=== PATIENT | male | born 1945 | race Caucasian/White ===

== ENCOUNTER 2016-11-20 08:17 | Inpatient (IN) | payer OTHER ==
[~2016-11-20] VITALS: Ht 188 cm; Wt 133.2 kg
[2016-11-20 09:31] LABS: EOSINOPHIL (%) 0 % (0-5); HEMATOCRIT 35.4 % (38.0-50.0); IMMATURE GRANULOCYTE (%) 0.3 % (0.0-0.7); IMMATURE GRANULOCYTE COUNT 0.5 K/uL; LYMPHOCYTE COUNT 0.5 K/uL (1.0-2.8); MCH 31.3 PG (29.0-34.0); MCHC 33.6 G/DL (30.0-36.0); MCV 93.2 FL (86-99); MONOCYTE (%) 5.3 % (3-12); NEUTROPHIL (%) 91.9 % (45-76); NEUTROPHIL COUNT 17.4 K/uL (1.8-6.4); PLATELET COUNT 268 K/uL (156-360); RBC DIS.WIDTH-CV 12.6 % (11.8-14.6); RBC DIS.WIDTH-SD 40.9 % (39-53); WHITE BLOOD COUNT 18.9 K/uL (4.1-10.2)
[2016-11-20 09:39] LABS: CHLORIDE 105 mEq/L (99-109); POTASSIUM 3.9 mEq/L (3.7-5.4); SODIUM 139 mEq/L (136-147)
[2016-11-20 09:41] LABS: GLUCOSE 204 mg/dL (70-99)
[2016-11-20 09:42] LABS: ANION GAP 12 MEQ/L (2-14)
[2016-11-20 09:43] LABS: TOTAL BILIRUBIN 0.7 mg/dL (0.0-1.0)
[2016-11-20 09:44] LABS: ALKALINE PHOSPHATASE 53 IU/L (3-129)
[2016-11-20 09:45] LABS: GFR ESTIMATE (CALCULATED) > 59 mL/min/
[2016-11-20 09:46] LABS: UREA NITROGEN (BUN) 19 mg/dL (9-23)
[2016-11-20 09:48] LABS: LIPASE > 1055 U/L (1.0-51.0)
[2016-11-20] MEDS ORDERED: DOXAZOSIN MESYLA8 MG PO (13:42)
[2016-11-20] MEDS ORDERED: REGLAN10 MG PO (13:42)
[2016-11-20] MEDS ORDERED: GLIPIZIDE5 MG PO (13:42)
[2016-11-20] MEDS ORDERED: ATENOLOL25 MG PO (13:43)
[2016-11-20] MEDS ORDERED: CITALOPRAM HBR40 MG PO (13:43)
[2016-11-20] MEDS ORDERED: OMEPRAZOLE20 MG PO (13:43)
[2016-11-20] MEDS ORDERED: NAPROXEN500 MG PO (13:45)
[2016-11-20] MEDS ORDERED: MIRALAX17 GM PO (13:46)
[2016-11-20] MEDS ORDERED: PERCOCET 10/1 TABLET PO (13:46)
[2016-11-20] MEDS ORDERED: TRAMADOL HCL50 MG PO (13:46)
[2016-11-20] MEDS ORDERED: ASPIR-LOW81 MG PO (13:47)
[2016-11-20] MEDS ORDERED: VITAMIN D31000 UNI2 PO (13:47)
[2016-11-20] MEDS ORDERED: COMPLEX B-1001 EACH PO (13:47)
[2016-11-20] MEDS ORDERED: FISH OIL 1,2001 EAC4 PO (13:48)
[2016-11-20] MEDS ORDERED: CALCIUM PLUS M1 EAC1 PO (13:48)
[2016-11-20 15:34] LABS: Estimated Average Glucose 123 mg/dL (70-123); HEMOGLOBIN A1c (GLYCOHEMOGLOB) 5.9 % HGB (Below 5.7)
[2016-11-20 17:03] LABS: TRIGLYCERIDES 113 MG/DL (Normal: <150)
[2016-11-20 17:34] VITALS: BP 136/62
[2016-11-20 19:40] VITALS: BP 156/72
[2016-11-20 23:59] VITALS: BP 122/64
[2016-11-21 04:16] VITALS: BP 137/66
[2016-11-21 07:01] LABS: MCH 31.3 PG (29.0-34.0); MCHC 32.8 G/DL (30.0-36.0); MCV 95.2 FL (86-99); MEAN PLAT.VOLUME 10.5 uM^3 (9.0-12.4); PLATELET COUNT 232 K/uL (156-360); RBC DIS.WIDTH-CV 13.5 % (11.8-14.6); RBC DIS.WIDTH-SD 46.9 % (39-53); RED BLOOD COUNT 3.36 M/uL (4.00-5.50)
[2016-11-21 07:02] LABS: ALKALINE PHOSPHATASE 48 IU/L (3-129); ANION GAP 9 MEQ/L (2-14); CHLORIDE 108 MEQ/L (99-109); GFR ESTIMATE (CALCULATED) > 59 mL/min/; POTASSIUM 4.1 MEQ/L (3.7-5.4); SAMPLE HEMOLYSIS CHECK 0; SAMPLE ICTERIC CHECK 0; SAMPLE LIPEMIA CHECK 0; SODIUM 143 MEQ/L (136-147); TOTAL BILIRUBIN 0.5 MG/DL (0.0-1.0); UREA NITROGEN (BUN) 20 mg/dL (9-23)
[2016-11-21 07:03] LABS: GLUCOSE 110 mg/dL (70-99); WHITE BLOOD COUNT 12.9 K/uL (4.1-10.2)
[2016-11-21 07:56] VITALS: BP 132/63
[2016-11-21 11:31] VITALS: BP 142/67
[2016-11-21 14:11] LABS: LIPASE 789 U/L (1.0-51.0)
[2016-11-21 16:00] VITALS: BP 182/79
[2016-11-21 19:25] VITALS: BP 140/75
[2016-11-21 23:35] VITALS: BP 170/74
[2016-11-22 04:34] VITALS: BP 151/67
[2016-11-22 05:53] LABS: HEMATOCRIT 31.4 % (38.0-50.0); MCH 31.6 PG (29.0-34.0); MCHC 33.8 G/DL (30.0-36.0); MCV 93.7 FL (86-99); MEAN PLAT.VOLUME 10.3 uM^3 (9.0-12.4); PLATELET COUNT 226 K/uL (156-360); RBC DIS.WIDTH-CV 12.8 % (11.8-14.6); RED BLOOD COUNT 3.35 M/uL (4.00-5.50); WHITE BLOOD COUNT 13.5 K/uL (4.1-10.2)
[2016-11-22 06:44] LABS: ANION GAP 12 MEQ/L (2-14); CHLORIDE 104 MEQ/L (99-109); GFR ESTIMATE (CALCULATED) > 59 mL/min/; GLUCOSE 153 mg/dL (70-99); LIPASE 155 U/L (1.0-51.0); POTASSIUM 3.6 MEQ/L (3.7-5.4); SAMPLE HEMOLYSIS CHECK 0; SAMPLE ICTERIC CHECK 0; SAMPLE LIPEMIA CHECK 0; SODIUM 137 MEQ/L (136-147); UREA NITROGEN (BUN) 11 mg/dL (9-23)
[2016-11-22 08:02] VITALS: BP 149/78
[2016-11-22 12:18] VITALS: BP 156/82
[2016-11-22 15:42] VITALS: BP 157/71
[2016-11-22 20:00] VITALS: BP 190/85
[2016-11-23] VITALS: BP 184/87
[2016-11-23 04:25] VITALS: BP 184/87
[2016-11-23 07:44] VITALS: BP 184/83
[2016-11-23 08:41] LABS: HEMATOCRIT 32.5 % (38.0-50.0); MCH 30.5 PG (29.0-34.0); MCHC 33.2 G/DL (30.0-36.0); MCV 91.8 FL (86-99); MEAN PLAT.VOLUME 10.2 uM^3 (9.0-12.4); PLATELET COUNT 231 K/uL (156-360); RBC DIS.WIDTH-CV 12.7 % (11.8-14.6); RED BLOOD COUNT 3.54 M/uL (4.00-5.50); WHITE BLOOD COUNT 12.6 K/uL (4.1-10.2)
[2016-11-23 09:04] LABS: INTER. NORMALIZED RATIO 1.1; PROTHROMBIN TIME 10.8 (9.2-11.2)
[2016-11-23 09:39] LABS: ALKALINE PHOSPHATASE 50 IU/L (3-129); ANION GAP 12 MEQ/L (2-14); CHLORIDE 100 MEQ/L (99-109); GFR ESTIMATE (CALCULATED) > 59 mL/min/; GLUCOSE 164 mg/dL (70-99); LIPASE 49 U/L (1.0-51.0); POTASSIUM 3.6 MEQ/L (3.7-5.4); SAMPLE HEMOLYSIS CHECK 0; SAMPLE ICTERIC CHECK 0; SAMPLE LIPEMIA CHECK 0; SODIUM 133 MEQ/L (136-147); UREA NITROGEN (BUN) 9 mg/dL (9-23)
[2016-11-23 09:51] LABS: TOTAL BILIRUBIN 0.7 MG/DL (0.0-1.0)
[2016-11-23 12:10] LABS: POINT-OF-CARE METER ID UU13113694
[2016-11-23 12:12] VITALS: BP 134/67
[2016-11-23 20:21] VITALS: BP 150/78
[2016-11-24] VITALS (7 sets, daily range): BP systolic 143–180; BP diastolic 68–102
[2016-11-24] MEDS ORDERED: DILAUDID2 MG PO (10:17)
[2016-11-24] MEDS ORDERED: COLACE100 MG PO ×2 (10:17→10:27)
[2016-11-24] MEDS ORDERED: HYDROMORPHONE HC2 MG PO (10:27)
[2016-11-24 21:58] LABS: POINT-OF-CARE METER ID UU14174225
[2016-11-25] VITALS (7 sets, daily range): BP systolic 166–200; BP diastolic 76–100
[2016-11-25 06:41] LABS: MCH 31.7 PG (29.0-34.0); MCHC 35.2 G/DL (30.0-36.0); MCV 90.2 FL (86-99); MEAN PLAT.VOLUME 10.2 uM^3 (9.0-12.4); PLATELET COUNT 277 K/uL (156-360); RBC DIS.WIDTH-CV 12.5 % (11.8-14.6); RBC DIS.WIDTH-SD 40.7 % (39-53); RED BLOOD COUNT 3.66 M/uL (4.00-5.50); WHITE BLOOD COUNT 12.4 K/uL (4.1-10.2)
[2016-11-25 07:03] LABS: ANION GAP 11 MEQ/L (2-14); CHLORIDE 95 MEQ/L (99-109); GFR ESTIMATE (CALCULATED) > 59 mL/min/; GLUCOSE 167 mg/dL (70-99); SAMPLE HEMOLYSIS CHECK 0; SAMPLE ICTERIC CHECK 0; SAMPLE LIPEMIA CHECK 0; SODIUM 131 MEQ/L (136-147); UREA NITROGEN (BUN) 7 mg/dL (9-23)
[2016-11-25 09:13] LABS: ALKALINE PHOSPHATASE 71 IU/L (3-129); DIRECT BILIRUBIN 0.3 mg/dL (0.0-0.3); TOTAL BILIRUBIN 0.8 MG/DL (0.0-1.0)
[2016-11-26 01:39] VITALS: BP 91/50
[2016-11-26 01:40] VITALS: BP 103/58
[2016-11-26 07:57] VITALS: BP 130/69
[2016-11-26 13:30] VITALS: BP 87/58
[2016-11-26 15:08] LABS: EOSINOPHIL (%) 0.4 % (0-5); EOSINOPHIL COUNT 0.1 K/uL (0-0.3); HEMATOCRIT 33.2 % (38.0-50.0); IMMATURE GRANULOCYTE (%) 1.7 % (0.0-0.7); IMMATURE GRANULOCYTE COUNT 0.2 K/uL; LYMPHOCYTE COUNT 1.1 K/uL (1.0-2.8); MCHC 33.7 G/DL (30.0-36.0); MEAN PLAT.VOLUME 10.2 uM^3 (9.0-12.4); MONOCYTE (%) 10.8 % (3-12); MONOCYTE COUNT 1.5 K/uL (0-0.8); NEUTROPHIL (%) 79.1 % (45-76); NEUTROPHIL COUNT 10.9 K/uL (1.8-6.4); PLATELET COUNT 306 K/uL (156-360); RBC DIS.WIDTH-CV 12.8 % (11.8-14.6); RBC DIS.WIDTH-SD 41.3 % (39-53); RED BLOOD COUNT 3.73 M/uL (4.00-5.50); WHITE BLOOD COUNT 13.8 K/uL (4.1-10.2)
[2016-11-26 17:00] VITALS: BP 116/67
[2016-11-27 00:10] VITALS: BP 133/64
[2016-11-27 06:39] LABS: HEMATOCRIT 32.7 % (38.0-50.0); MCH 31.2 PG (29.0-34.0); MCHC 34.6 G/DL (30.0-36.0); MCV 90.3 FL (86-99); MEAN PLAT.VOLUME 10.2 uM^3 (9.0-12.4); PLATELET COUNT 297 K/uL (156-360); RBC DIS.WIDTH-CV 12.9 % (11.8-14.6); RBC DIS.WIDTH-SD 42.3 % (39-53); RED BLOOD COUNT 3.62 M/uL (4.00-5.50); WHITE BLOOD COUNT 12.2 K/uL (4.1-10.2)
[2016-11-27 07:05] LABS: ANION GAP 12 MEQ/L (2-14); CHLORIDE 97 MEQ/L (99-109); GLUCOSE 159 mg/dL (70-99); POTASSIUM 3.1 MEQ/L (3.7-5.4); SAMPLE HEMOLYSIS CHECK 0; SAMPLE ICTERIC CHECK 0; SAMPLE LIPEMIA CHECK 0; SODIUM 132 MEQ/L (136-147)
[2016-11-27 07:06] LABS: ALKALINE PHOSPHATASE 194 IU/L (3-129); GFR ESTIMATE (CALCULATED) > 59 mL/min/; TOTAL BILIRUBIN 2.1 MG/DL (0.0-1.0); UREA NITROGEN (BUN) 27 mg/dL (9-23)
[2016-11-27 07:41] VITALS: BP 167/78
[2016-11-27 13:09] LABS: DIRECT BILIRUBIN 0.9 mg/dL (0.0-0.3)
[2016-11-27 15:09] VITALS: BP 184/83
[2016-11-27 19:14] VITALS: BP 132/63
[2016-11-28] VITALS: BP 141/69
[2016-11-28 07:19] LABS: ALKALINE PHOSPHATASE 175 IU/L (3-129); ANION GAP 11 MEQ/L (2-14); CHLORIDE 100 MEQ/L (99-109); GFR ESTIMATE (CALCULATED) > 59 mL/min/; GLUCOSE 126 mg/dL (70-99); LIPASE 190 U/L (1.0-51.0); SAMPLE HEMOLYSIS CHECK 0; SAMPLE ICTERIC CHECK 0; SAMPLE LIPEMIA CHECK 0; SODIUM 137 MEQ/L (136-147); UREA NITROGEN (BUN) 21 mg/dL (9-23)
[2016-11-28 07:21] LABS: AMYLASE 88 IU/L (1-118); POTASSIUM 3.9 MEQ/L (3.7-5.4); TOTAL BILIRUBIN 0.8 MG/DL (0.0-1.0)
[2016-11-28 07:30] VITALS: BP 148/80
== END 2016-11-28 14:06 | disposition home or self-care (01) | DRG 419 ==
LOC: EME 08:17 → 5SOUTH 12:43 → EDOF 12:43 → 5SOUTH 17:23
PROVIDERS: Emergency Medicine; Internal Medicine; Internal Medicine Gastroenterology; Physician Assistant; Student in an Organized Health Care Education/Training Program; Surgery
PROC: 0FT44ZZ Resection of Gallbladder, Percutaneous Endoscopic Approach (ICD-10-PCS; principal; 2016-11-23)
PROC: 0DJ08ZZ Inspection of Upper Intestinal Tract, Via Natural or Artificial Opening Endoscopic (ICD-10-PCS; principal; 2016-11-23)
DX: K85.10 Biliary acute pancreatitis without necrosis or infection (principal); K29.80 Duodenitis without bleeding; K80.20 Calculus of gallbladder without cholecystitis without obstruction; G89.18 Other acute postprocedural pain; E88.89 Other specified metabolic disorders; I10 Essential (primary) hypertension; E11.9 Type 2 diabetes mellitus without complications; Q63.1 Lobulated, fused and horseshoe kidney; K57.90 Diverticulosis of intestine, part unspecified, without perforation or abscess without bleeding; J45.909 Unspecified asthma, uncomplicated; G47.33 Obstructive sleep apnea (adult) (pediatric); Z68.37 Body mass index [BMI] 37.0-37.9, adult; E66.9 Obesity, unspecified
CPT/HCPCS: 74177; 74181; 76705; 80048; 80053; 80076; 82150; 82248; 82948; 83036; 83690; 84478; 85025; 85027; 85610; 85730; 87040; 87493; 87506; 88304; 93005; 93306; 94660; 94799; 99281; 99285; C9113; J0330; J0360; J0744; J1170; J1650; J1940; J2250; J2405; J2550; J2765; J3010; J7030; J7040; J7120; S0028

== ENCOUNTER 2016-12-05 06:26 | Inpatient (IN) | payer OTHER ==
[~2016-12-05] VITALS: Ht 190.5 cm; Wt 123.5 kg
[~2016-12-05 06:26] MED LIST: ASPIR-LOW81 MG PO; ATENOLOL25 MG PO; CALCIUM PLUS M1 EAC1 PO; CITALOPRAM HBR40 MG PO; COLACE100 MG PO; COMPLEX B-1001 EACH PO; DILAUDID2 MG PO; DOXAZOSIN MESYLA8 MG PO; FISH OIL 1,2001 EAC4 PO; GLIPIZIDE5 MG PO; HYDROMORPHONE HC2 MG PO; MIRALAX17 GM PO; NAPROXEN500 MG PO; OMEPRAZOLE20 MG PO; PERCOCET 10/1 TABLET PO; REGLAN10 MG PO; TRAMADOL HCL50 MG PO; VITAMIN D31000 UNI2 PO
[2016-12-05 07:09] LABS: EOSINOPHIL (%) 0 % (0-5); HEMATOCRIT 29.7 % (38.0-50.0); IMMATURE GRANULOCYTE (%) 0.4 % (0.0-0.7); IMMATURE GRANULOCYTE COUNT 0.8 K/uL; LYMPHOCYTE COUNT 0.2 K/uL (1.0-2.8); MCH 30.5 PG (29.0-34.0); MCHC 33.7 G/DL (30.0-36.0); MCV 90.5 FL (86-99); MEAN PLAT.VOLUME 10.1 uM^3 (9.0-12.4); MONOCYTE (%) 2.4 % (3-12); MONOCYTE COUNT 0.4 K/uL (0-0.8); NEUTROPHIL (%) 96.1 % (45-76); NEUTROPHIL COUNT 17.6 K/uL (1.8-6.4); PLATELET COUNT 312 K/uL (156-360); RBC DIS.WIDTH-CV 12.7 % (11.8-14.6); RBC DIS.WIDTH-SD 40.7 % (39-53); RED BLOOD COUNT 3.28 M/uL (4.00-5.50); WHITE BLOOD COUNT 18.3 K/uL (4.1-10.2)
[2016-12-05 07:15] LABS: CHLORIDE 107 mEq/L (99-109); SODIUM 140 mEq/L (136-147)
[2016-12-05 07:17] LABS: GLUCOSE 143 mg/dL (70-99)
[2016-12-05 07:19] LABS: ANION GAP 14 MEQ/L (2-14); TOTAL BILIRUBIN 3.8 mg/dL (0.0-1.0)
[2016-12-05 07:21] LABS: ALKALINE PHOSPHATASE 334 IU/L (3-129); GFR ESTIMATE (CALCULATED) > 59 mL/min/
[2016-12-05 07:22] LABS: UREA NITROGEN (BUN) 14 mg/dL (9-23)
[2016-12-05 07:24] LABS: TROP-I INTERPRETATION NEGATIVE
[2016-12-05 07:30] LABS: INFLUENZA A VIRAL ANTIGEN NEGATIVE; INFLUENZA B VIRAL ANTIGEN NEGATIVE
[2016-12-05 07:36] LABS: LIPASE > 4220 U/L (1.0-51.0)
[2016-12-05 08:57] LABS: BILIRUBIN MODERATE; BLOOD NEGATIVE; COLOR DK YELLOW ((YELLOW)); GLUCOSE (STRIP) NEGATIVE; KETONES NEGATIVE; LEUKOCYTES NEGATIVE; NITRITE NEGATIVE; PROTEIN (STRIP) 30; SPECIFIC GRAVITY 1.029 (1.000-1.030)
[2016-12-05 09:01] LABS: ADD MIUA? NO; UCUL ADDED? NO
[2016-12-05 09:17] LABS: ICTOTEST POSITIVE
[2016-12-05 10:28] LABS: TOTAL BILIRUBIN 4.3 mg/dL (0.0-1.0)
[2016-12-05 10:29] LABS: ALKALINE PHOSPHATASE 318 IU/L (3-129)
[2016-12-05 10:32] LABS: DIRECT BILIRUBIN 3.4 mg/dL (0.0-0.3)
[2016-12-05 11:03] LABS: HBSG INDEX 0.14
[2016-12-05 11:04] LABS: HPCA INDEX 0.14
[2016-12-05 11:05] LABS: ANTI-HEPATITIS A VIRUS (IGM) Nonreactive; HAV INDEX 0.22
[2016-12-05 11:06] LABS: ANTI-HEPATITIS B CORE (IGM) Nonreactive; HBC IgM INDEX 0.05
[2016-12-05 11:13] LABS: HDL CHOLESTEROL 29 MG/DL (Desirable>=40); LDL CHOLESTEROL 64 mg/dL (Desirable<100); NON-HDL CHOLESTEROL 81 mg/dL (Desirable<160); TOTAL CHOLESTEROL 110 mg/dL (Desirable<200); TRIGLYCERIDES 86 MG/DL (Normal: <150)
[2016-12-05 11:52] LABS: POINT-OF-CARE METER ID UU14100415
[2016-12-05 16:33] LABS: POINT-OF-CARE METER ID UU13113675
[2016-12-05 18:09] VITALS: BP 180/84
[2016-12-05 18:20] VITALS: BP 180/84
[2016-12-05 19:37] VITALS: BP 163/82
[2016-12-05 23:46] VITALS: BP 178/91
[2016-12-06 03:10] VITALS: BP 150/72
[2016-12-06 06:53] LABS: EOSINOPHIL (%) 0.2 % (0-5); HEMATOCRIT 26.8 % (38.0-50.0); IMMATURE GRANULOCYTE (%) 0.4 % (0.0-0.7); IMMATURE GRANULOCYTE COUNT 0.1 K/uL; LYMPHOCYTE COUNT 0.8 K/uL (1.0-2.8); MCH 30.8 PG (29.0-34.0); MCHC 33.2 G/DL (30.0-36.0); MCV 92.7 FL (86-99); MEAN PLAT.VOLUME 10.5 uM^3 (9.0-12.4); MONOCYTE (%) 4.5 % (3-12); MONOCYTE COUNT 0.6 K/uL (0-0.8); NEUTROPHIL (%) 89.5 % (45-76); NEUTROPHIL COUNT 12.6 K/uL (1.8-6.4); PLATELET COUNT 235 K/uL (156-360); RBC DIS.WIDTH-CV 13.6 % (11.8-14.6); RBC DIS.WIDTH-SD 46.3 % (39-53); RED BLOOD COUNT 2.89 M/uL (4.00-5.50); WHITE BLOOD COUNT 14.1 K/uL (4.1-10.2)
[2016-12-06 07:24] LABS: ALKALINE PHOSPHATASE 233 IU/L (3-129); ANION GAP 10 MEQ/L (2-14); CHLORIDE 108 MEQ/L (99-109); DIRECT BILIRUBIN 2.1 mg/dL (0.0-0.3); GFR ESTIMATE (CALCULATED) > 59 mL/min/; GLUCOSE 149 mg/dL (70-99); LIPASE 180 U/L (1.0-51.0); POTASSIUM 3.5 MEQ/L (3.7-5.4); SAMPLE HEMOLYSIS CHECK 0; SAMPLE ICTERIC CHECK 0; SAMPLE LIPEMIA CHECK 0; SODIUM 140 MEQ/L (136-147); UREA NITROGEN (BUN) 15 mg/dL (9-23)
[2016-12-06 07:29] VITALS: BP 130/75
[2016-12-06 07:49] LABS: POINT-OF-CARE METER ID UU13113781
[2016-12-06 11:37] LABS: POINT-OF-CARE METER ID UU14174216
[2016-12-06 12:30] VITALS: BP 160/78
[2016-12-06 16:17] LABS: POINT-OF-CARE METER ID UU14174216
[2016-12-06 16:31] VITALS: BP 180/81
[2016-12-06 20:00] VITALS: BP 155/87; BP 55/87
[2016-12-06 21:39] LABS: POINT-OF-CARE METER ID UU13113781
[2016-12-06 23:33] VITALS: BP 159/87; BP 59/87
[2016-12-07 04:34] LABS: POINT-OF-CARE METER ID UU14174216
[2016-12-07 06:35] LABS: HEMATOCRIT 26.5 % (38.0-50.0); MCH 30.7 PG (29.0-34.0); MCHC 33.2 G/DL (30.0-36.0); MCV 92.3 FL (86-99); PLATELET COUNT 251 K/uL (156-360); RBC DIS.WIDTH-CV 13.6 % (11.8-14.6); RED BLOOD COUNT 2.87 M/uL (4.00-5.50); WHITE BLOOD COUNT 12.5 K/uL (4.1-10.2)
[2016-12-07 07:01] LABS: ALKALINE PHOSPHATASE 194 IU/L (3-129); ANION GAP 11 MEQ/L (2-14); CHLORIDE 106 MEQ/L (99-109); GFR ESTIMATE (CALCULATED) > 59 mL/min/; GLUCOSE 137 mg/dL (70-99); MAGNESIUM 1.3 mg/dl (1.3-2.7); POTASSIUM 3.5 MEQ/L (3.7-5.4); SAMPLE HEMOLYSIS CHECK 0; SAMPLE ICTERIC CHECK 0; SAMPLE LIPEMIA CHECK 0; SODIUM 139 MEQ/L (136-147); UREA NITROGEN (BUN) 11 mg/dL (9-23)
[2016-12-07 07:02] VITALS: BP 142/88
[2016-12-07 07:22] LABS: TOTAL BILIRUBIN 1.8 MG/DL (0.0-1.0)
[2016-12-07 07:50] LABS: POINT-OF-CARE METER ID UU14174216
[2016-12-07 11:33] LABS: POINT-OF-CARE METER ID UU14174216
[2016-12-07 11:44] VITALS: BP 162/100
[2016-12-07 15:50] VITALS: BP 140/91
[2016-12-07 16:12] LABS: POINT-OF-CARE METER ID UU14174216
[2016-12-07 20:17] VITALS: BP 160/78
[2016-12-08] VITALS (7 sets, daily range): BP systolic 145–188; BP diastolic 68–92
[2016-12-08 06:00] LABS: EOSINOPHIL (%) 0.8 % (0-5); EOSINOPHIL COUNT 0.1 K/uL (0-0.3); HEMATOCRIT 25.7 % (38.0-50.0); IMMATURE GRANULOCYTE (%) 0.3 % (0.0-0.7); LYMPHOCYTE COUNT 0.8 K/uL (1.0-2.8); MCH 30.6 PG (29.0-34.0); MCHC 33.1 G/DL (30.0-36.0); MCV 92.4 FL (86-99); MEAN PLAT.VOLUME 10.8 uM^3 (9.0-12.4); MONOCYTE (%) 6.5 % (3-12); MONOCYTE COUNT 0.7 K/uL (0-0.8); NEUTROPHIL (%) 84.2 % (45-76); NEUTROPHIL COUNT 8.7 K/uL (1.8-6.4); PLATELET COUNT 239 K/uL (156-360); RBC DIS.WIDTH-CV 13.4 % (11.8-14.6); RBC DIS.WIDTH-SD 45.8 % (39-53); RED BLOOD COUNT 2.78 M/uL (4.00-5.50); WHITE BLOOD COUNT 10.3 K/uL (4.1-10.2)
[2016-12-08 06:30] LABS: ALKALINE PHOSPHATASE 181 IU/L (3-129); ANION GAP 8 MEQ/L (2-14); CHLORIDE 107 MEQ/L (99-109); GFR ESTIMATE (CALCULATED) > 59 mL/min/; GLUCOSE 129 mg/dL (70-99); LIPASE 34 U/L (1.0-51.0); POTASSIUM 3.7 MEQ/L (3.7-5.4); SAMPLE HEMOLYSIS CHECK 0; SAMPLE ICTERIC CHECK 0; SAMPLE LIPEMIA CHECK 0; SODIUM 139 MEQ/L (136-147); UREA NITROGEN (BUN) 9 mg/dL (9-23)
[2016-12-08 06:33] LABS: TOTAL BILIRUBIN 1.2 MG/DL (0.0-1.0)
[2016-12-08 20:43] LABS: POINT-OF-CARE METER ID UU13113698
[2016-12-09 03:49] VITALS: BP 160/90
[2016-12-09 05:35] LABS: EOSINOPHIL (%) 1.2 % (0-5); EOSINOPHIL COUNT 0.1 K/uL (0-0.3); IMMATURE GRANULOCYTE (%) 1.1 % (0.0-0.7); IMMATURE GRANULOCYTE COUNT 0.1 K/uL; LYMPHOCYTE COUNT 0.9 K/uL (1.0-2.8); MCH 30.9 PG (29.0-34.0); MCHC 33.5 G/DL (30.0-36.0); MCV 92.2 FL (86-99); MEAN PLAT.VOLUME 10.8 uM^3 (9.0-12.4); MONOCYTE (%) 8.2 % (3-12); MONOCYTE COUNT 0.7 K/uL (0-0.8); NEUTROPHIL (%) 78.9 % (45-76); NEUTROPHIL COUNT 7.1 K/uL (1.8-6.4); NRBC (%) 0.2 /100 WBC (0-0); PLATELET COUNT 235 K/uL (156-360); RBC DIS.WIDTH-CV 13.5 % (11.8-14.6); RBC DIS.WIDTH-SD 45.3 % (39-53); RED BLOOD COUNT 2.82 M/uL (4.00-5.50)
[2016-12-09 06:12] LABS: ALKALINE PHOSPHATASE 139 IU/L (3-129); ANION GAP 9 MEQ/L (2-14); CHLORIDE 106 MEQ/L (99-109); GFR ESTIMATE (CALCULATED) > 59 mL/min/; GLUCOSE 123 mg/dL (70-99); POTASSIUM 3.8 MEQ/L (3.7-5.4); SAMPLE HEMOLYSIS CHECK 0; SAMPLE ICTERIC CHECK 0; SAMPLE LIPEMIA CHECK 0; SODIUM 141 MEQ/L (136-147); UREA NITROGEN (BUN) 7 mg/dL (9-23)
[2016-12-09 06:17] LABS: TOTAL BILIRUBIN 0.9 MG/DL (0.0-1.0)
[2016-12-09 07:15] VITALS: BP 149/70
[2016-12-09 07:50] LABS: POINT-OF-CARE METER ID UU13113781
[2016-12-09 11:15] VITALS: BP 200/95
[2016-12-09 12:06] LABS: POINT-OF-CARE METER ID UU13113781
[2016-12-09 12:15] VITALS: BP 181/83
[2016-12-09 16:00] VITALS: BP 173/76
[2016-12-09 16:22] LABS: POINT-OF-CARE METER ID UU13113781
[2016-12-09 19:56] VITALS: BP 177/89
[2016-12-10] VITALS: BP 183/81
[2016-12-10 04:11] VITALS: BP 180/79
[2016-12-10 07:36] VITALS: BP 144/69
[2016-12-10 07:44] LABS: HEMATOCRIT 28.4 % (38.0-50.0); MCH 29.8 PG (29.0-34.0); MCHC 33.1 G/DL (30.0-36.0); MCV 90.2 FL (86-99); MEAN PLAT.VOLUME 10.4 uM^3 (9.0-12.4); PLATELET COUNT 246 K/uL (156-360); RBC DIS.WIDTH-CV 13.5 % (11.8-14.6); RBC DIS.WIDTH-SD 43.9 % (39-53); RED BLOOD COUNT 3.15 M/uL (4.00-5.50); WHITE BLOOD COUNT 9.7 K/uL (4.1-10.2)
[2016-12-10 08:22] LABS: ANION GAP 11 MEQ/L (2-14); CHLORIDE 104 MEQ/L (99-109); GFR ESTIMATE (CALCULATED) > 59 mL/min/; GLUCOSE 139 mg/dL (70-99); POTASSIUM 3.4 MEQ/L (3.7-5.4); SAMPLE HEMOLYSIS CHECK 0; SAMPLE ICTERIC CHECK 0; SAMPLE LIPEMIA CHECK 0; SODIUM 138 MEQ/L (136-147); UREA NITROGEN (BUN) 6 mg/dL (9-23)
[2016-12-10 11:38] VITALS: BP 142/67
[2016-12-10 16:32] VITALS: BP 174/92
[2016-12-10 19:42] VITALS: BP 188/82
[2016-12-11 00:03] VITALS: BP 173/75
[2016-12-11 04:15] VITALS: BP 149/77
[2016-12-11 07:56] VITALS: BP 171/77
[2016-12-11 16:14] VITALS: BP 148/72
[2016-12-11 19:24] VITALS: BP 177/72
[2016-12-12 00:19] VITALS: BP 181/72
[2016-12-12 01:22] LABS: METH RESISTANT S AUREUS PCR NEGATIVE (NEGATIVE)
[2016-12-12 01:24] LABS: PROBE CHECK PASS; SPECIMEN PROCESSING CONTROL PASS
[2016-12-12 08:25] LABS: MCH 30.4 PG (29.0-34.0); MCHC 33.3 G/DL (30.0-36.0); MCV 91.2 FL (86-99); MEAN PLAT.VOLUME 10.9 uM^3 (9.0-12.4); PLATELET COUNT 275 K/uL (156-360); RBC DIS.WIDTH-SD 46.2 % (39-53); RED BLOOD COUNT 3.29 M/uL (4.00-5.50); WHITE BLOOD COUNT 7.5 K/uL (4.1-10.2)
[2016-12-12 08:35] VITALS: BP 129/71
[2016-12-12 08:51] LABS: ALKALINE PHOSPHATASE 119 IU/L (3-129); ANION GAP 13 MEQ/L (2-14); CHLORIDE 102 MEQ/L (99-109); DIRECT BILIRUBIN 0.4 mg/dL (0.0-0.3); GFR ESTIMATE (CALCULATED) > 59 mL/min/; GLUCOSE 139 mg/dL (70-99); POTASSIUM 3.7 MEQ/L (3.7-5.4); SAMPLE HEMOLYSIS CHECK 0; SAMPLE ICTERIC CHECK 0; SAMPLE LIPEMIA CHECK 0; SODIUM 138 MEQ/L (136-147); TOTAL BILIRUBIN 0.8 MG/DL (0.0-1.0); UREA NITROGEN (BUN) 8 mg/dL (9-23)
[2016-12-12] MEDS ORDERED: LEVAQUIN500 MG PO (12:03)
== END 2016-12-12 13:30 | disposition home health service (06) | DRG 871 ==
LOC: EME → EDBD 06:26 → EME 06:26 → 4EAST 09:29 → EDOF 09:29 → 4EAST 17:51 → 5SOUTH 12-09 19:24
PROVIDERS: Emergency Medicine; Hospitalist; Internal Medicine; Internal Medicine Gastroenterology; Physician Assistant
DX: A41.9 Sepsis, unspecified organism (principal); K85.90 Acute pancreatitis without necrosis or infection, unspecified; K83.0 Cholangitis; J96.10 Chronic respiratory failure, unspecified whether with hypoxia or hypercapnia; K83.1 Obstruction of bile duct; K56.7 Ileus, unspecified; E11.9 Type 2 diabetes mellitus without complications; E87.6 Hypokalemia; E66.01 Morbid (severe) obesity due to excess calories; Z79.4 Long term (current) use of insulin
CPT/HCPCS: 71010; 71020; 74000; 74177; 74181; 74330; 80048; 80053; 80061; 80074; 80076; 80202; 81003; 82948; 83605; 83690; 83735; 83880; 84100; 84484; 85025; 85027; 87040; 87077; 87081; 87186; 87493; 87502; 87506; 87641; 87801; 93005; 94799; 99281; 99285; C1757; C1769; C2625; C9113; J0360; J0696; J1170; J1650; J1815; J1940; J2405; J2543; J3010; J3370; J3480; J7030; J7050; J7120; S0030

== ENCOUNTER → 2017-01-31 | Outpatient (CLI) | payer OTHER ==
[~2017-01-31] VITALS: Ht 190.5 cm; Wt 113.4 kg
[~2017-01-31] MED LIST changes: +LEVAQUIN500 MG PO
[2017-01-31 10:05] LABS: POINT-OF-CARE METER ID UU13113694
[2017-01-31 12:18] LABS: POINT-OF-CARE METER ID UU13113675
== END | disposition home or self-care (01) ==
LOC: AMB 09:08
PROVIDERS: Internal Medicine Gastroenterology
DX: Z45.89 Encounter for adjustment and management of other implanted devices (principal); K83.0 Cholangitis; G25.0 Essential tremor; K21.9 Gastro-esophageal reflux disease without esophagitis; E78.5 Hyperlipidemia, unspecified; G47.33 Obstructive sleep apnea (adult) (pediatric); E11.9 Type 2 diabetes mellitus without complications; Z82.79 Family history of other congenital malformations, deformations and chromosomal abnormalities; Z81.8 Family history of other mental and behavioral disorders; Z87.891 Personal history of nicotine dependence; Z79.82 Long term (current) use of aspirin
CPT/HCPCS: 74328; 82948; 87081; C1757; J0330; J2250; J2405; J3010

== ENCOUNTER → 2017-07-04 | Outpatient (CLI) | payer OTHER ==
[~2017-07-04] VITALS: Ht 188 cm; Wt 130.5 kg
[2017-07-04 09:45] LABS: POINT-OF-CARE METER ID UU14107333
== END | disposition home or self-care (01) ==
LOC: AMB 08:09
PROVIDERS: Internal Medicine Gastroenterology
DX: Z12.11 Encounter for screening for malignant neoplasm of colon (principal); D12.3 Benign neoplasm of transverse colon; K31.7 Polyp of stomach and duodenum; K29.70 Gastritis, unspecified, without bleeding; K21.9 Gastro-esophageal reflux disease without esophagitis; Z86.010 Personal history of colon polyps; K57.30 Diverticulosis of large intestine without perforation or abscess without bleeding; E11.9 Type 2 diabetes mellitus without complications; G25.0 Essential tremor; E78.5 Hyperlipidemia, unspecified; G47.33 Obstructive sleep apnea (adult) (pediatric); Z90.49 Acquired absence of other specified parts of digestive tract; Z79.82 Long term (current) use of aspirin; Z79.84 Long term (current) use of oral hypoglycemic drugs; Z88.8 Allergy status to other drugs, medicaments and biological substances
CPT/HCPCS: 82948; 88305; 88342 TC; 93005; J2250

== ENCOUNTER → 2017-12-17 | Outpatient (CLI) | payer OTHER | END | disposition home or self-care (01) | LOC: RAD 08:32 | DX: G25.0 Essential tremor (principal) | CPT/HCPCS: 78607; A9584 ==